=== PATIENT | male | born 1970 ===

== ENCOUNTER 2018-08-10 16:04 | Emergency (ER) | payer OTHER ==
[2018-08-10 16:12] VITALS: BP 160/108; PULSE 74; RESP 18; TEMP 97.8; O2SAT 97
[2018-08-10] MEDS ORDERED: Lidocaine Hydrochloride 5 ML INJ ONE (16:13)
--- NOTE | 2018-08-10 16:22 | C.PDOC ---
History Of Present Illness 48 y/o male presents to the ER for evaluation of foreign body in his right foot. Patient states that he jumped off a truck and landed on a plastic spike object. Patient reports that the object went through his sneaker. Denies having weakness, numbness, LOC, headache, dizziness, nausea, and vomiting. Time Seen by Provider: 08/10/18 16:16 Chief Complaint (Nursing): Lower Extremity Problem/Injury History Per: Patient History/Exam Limitations: no limitations Onset/Duration Of Symptoms: Hrs Current Symptoms Are (Timing): Still Present Severity: Moderate Past Medical History Reviewed: Historical Data, Nursing Documentation, Vital Signs Vital Signs: Last Vital Signs Temp 97.8 F 08/10/18 16:09 Pulse 74 08/10/18 16:09 Resp 18 08/10/18 16:09 BP 160/108 H 08/10/18 16:09 Pulse Ox 97 08/10/18 16:09 - Medical History PMH: No Chronic Diseases Surgical History: No Surg Hx Family History: States: No Known Family Hx - Social History Hx Alcohol Use: No Hx Substance Use: No - Immunization History Hx Tetanus Toxoid Vaccination: No Hx Influenza Vaccination: No Hx Pneumococcal Vaccination: No Review Of Systems Constitutional: Negative for: Fever, Chills, Weakness Eyes: Positive for: Other ((-) scleral icterus). Negative for: Redness ENT: Negative for: Mouth Swelling Cardiovascular: Negative for: Chest Pain Respiratory: Negative for: Cough, Shortness of Breath Gastrointestinal: Negative for: Nausea, Vomiting, Diarrhea Genitourinary: Negative for: Dysuria, Hematuria Musculoskeletal: Negative for: Back Pain Skin: Positive for: Other (foreign object in right foot). Negative for: Rash Neurological: Negative for: Weakness, Numbness, Dizziness Physical Exam - Physical Exam Appears: Non-toxic, No Acute Distress Skin: Normal Color, Warm, Dry, Other (foreign body noted to arch of right foot, puncture hole visible with removal of foreign body) Head: Atraumatic, Normacephalic Eye(s): bilateral: Normal Inspection Nose: Normal Oral Mucosa: Moist Neck: Supple Chest: Symmetrical Extremity: Normal ROM, No Tenderness, No Swelling Neurological/Psych: Oriented x3, Normal Speech ED Course And Treatment O2 Sat by Pulse Oximetry: 97 (RA) Pulse Ox Interpretation: Normal - Other Rad X-Ray-Right Foot X-Ray: Viewed By Me, Read By Radiologist Interpretation: Date of service: 08/10/2018. PROCEDURE: Right Foot Radiographs. HISTORY: foreign body. COMPARISON: None. FINDINGS: BONES: Normal. No fracture. JOINTS: Normal. SOFT TISSUES: Normal. OTHER FINDINGS: None. IMPRESSION: No significant or acute findings to account for/ related to the clinical presentation. No visualized radiopaque foreign body. Medical Decision Making Medical Decision Making: Plan: --Foreign Body Removal --X-Ray-Right Foot --Cipro PO Updates: The foreign body has been removed from the foot. Puncture hole is visible in foot. patient will be treated prophylactically for pseudamonas due to penetrating object through sole of shoe and into foot. X Disposition Counseled Patient/Family Regarding: Studies Performed, Diagnosis, Need For Followup, Rx Given - Disposition Disposition: HOME/ ROUTINE Disposition Time: 16:41 Condition: IMPROVED Additional Instructions: ANAI PARSON, thank you for letting us take care of you today. Your provider was Laura Bonilla MD and you were treated for FOOT INJURY. The emergency medical care you received today was directed at your acute symptoms. If you were prescribed any medication, please fill it and take as directed. It may take several days for your symptoms to resolve. Return to the Emergency Department if your symptoms worsen, do not improve, or if you have any other problems. Please contact your doctor or call one of the physicians/clinics you have been referred to that are listed on the Patient Visit Information form that is included in your discharge packet. Bring any paperwork you were given at discharge with you along with any medications you are taking to your follow up visit. Our treatment cannot replace ongoing medical care by a primary care provider outside of the emergency department. Thank you for allowing the [facility] team to be part of your care today. If you had an X-Ray or CT scan: A Radiologist will review the ED reading if any change in treatment is needed we will contact you. Prescriptions: Ciprofloxacin HCl [Cipro] 500 mg PO BID #6 tab Instructions: Wound Care Forms: [facility] (Bengali), General Discharge Instructions Print Language: MALAWIAN - Clinical Impression Clinical Impression: Puncture wound of right foot - PA / SAMPLE GRADER / Resident Statement MD/DO has reviewed & agrees with the documentation as recorded. - Scribe Statement The provider has reviewed the documentation as recorded by the Nahomi Pineda Provider Attestation All medical record entries made by the Nahomi were at my direction and personally dictated by me. I have reviewed the chart and agree that the record accurately reflects my personal performance of the history, physical exam, medical decision making, and the department course for this patient. I have also personally directed, reviewed, and agree with the discharge instructions and disposition.
--- NOTE | 2018-08-10 17:22 | RAD ---
Date of service: 08/10/2018 PROCEDURE: Right Foot Radiographs. HISTORY: foreign body COMPARISON: None. FINDINGS: BONES: Normal. No fracture. JOINTS: Normal. SOFT TISSUES: Normal. OTHER FINDINGS: None. IMPRESSION: No significant or acute findings to account for/ related to the clinical presentation. No visualized radiopaque foreign body.
== END 2018-08-10 16:51 | disposition home or self-care (01) ==
LOC: C.ER 16:04
DX: S91.331A Puncture wound without foreign body, right foot, initial encounter (principal); W45.8XXA Other foreign body or object entering through skin, initial encounter